=== PATIENT | male | born 2000 | race Caucasian/White ===

== ENCOUNTER 2018-04-23 13:59 | Emergency (ER) | payer SELFPAY ==
--- NOTE | 2018-04-23 14:19 | EDM.PDOC ---
ED HPI GENERAL MEDICAL PROBLEM - General Stated Complaint: EAR INFECTION Time Seen by Provider: 04/23/18 14:19 Source of Information: Reports: Patient - History of Present Illness INITIAL COMMENTS - FREE TEXT/NARRATIVE: HISTORY AND PHYSICAL: History of present illness: [Patient presents with bilateral ear pain is had right ear pain for a week left began yesterday no fever chills sweats] Review of systems: As per history of present illness and below otherwise all systems reviewed and negative. Past medical history: As per history of present illness and as reviewed below otherwise noncontributory. Surgical history: As per history of present illness and as reviewed below otherwise noncontributory. Social history: No reported history of drug or alcohol abuse. Family history: As per history of present illness and as reviewed below otherwise noncontributory. Physical exam: HEENT: Atraumatic, normocephalic, pupils reactive, negative for conjunctival pallor or scleral icterus, mucous membranes moist, throat clear, neck supple, nontender, trachea midline. Lateral otitis media noted he does have right mastoid tenderness no tenderness on the left no pain with movement of either auricle Lungs: Clear to auscultation, breath sounds equal bilaterally, chest nontender. Heart: S1S2, regular, negative for clicks, rubs, or JVD. Abdomen: Soft, nondistended, nontender. Negative for masses or hepatosplenomegaly. Negative for costovertebral tenderness. Pelvis: Stable nontender. Genitourinary: Deferred. Rectal: Deferred. Extremities: Atraumatic, negative for cords or calf pain. Neurovascular unremarkable. Neuro: Awake, alert, oriented. Cranial nerves II through XII unremarkable. Cerebellum unremarkable. Motor and sensory unremarkable throughout. Exam nonfocal. Diagnostics: [Head CT no contrast ] Therapeutics: [] Impression: [Bilateral otitis media] Definitive disposition and diagnosis as appropriate pending reevaluation and review of above. Face Pain Score (Numeric/FACES): 8 - Related Data Allergies Allergy/AdvReac Type Severity Reaction Status Date / Time No Known Allergies Allergy Verified 04/23/18 15:09 Home Meds: Home Meds . [No Known Home Meds] 04/23/18 [History] ED ROS GENERAL - Review of Systems Review Of Systems: See Below ED EXAM, GENERAL - Physical Exam Exam: See Below Course - Vital Signs Last Recorded V/S: Last Vital Signs Temp 98.4 F 04/23/18 14:18 Pulse 95 04/23/18 14:18 Resp 18 04/23/18 14:18 BP 119/64 04/23/18 14:18 Pulse Ox 98 04/23/18 14:18 - Orders/Labs/Meds Orders: Active Orders 24 hr Category Date Time Status Orbit Sella PF IAC wo Cont [CT] Stat Exams 04/23/18 14:24 Taken Departure - Departure Time of Disposition: 16:24 Disposition: Home, Self-Care 01 Condition: Good Clinical Impression: Otitis interna - Discharge Information Referrals: PCP,None [Primary Care Provider] - Additional Instructions: The following information is given to patients seen in the emergency department who are being discharged to home. This information is to outline your options for follow-up care. We provide all patients seen in our emergency department with a follow-up referral. The need for follow-up, as well as the timing and circumstances, are variable depending upon the specifics of your emergency department visit. If you don't have a primary care physician on staff, we will provide you with a referral. We always advise you to contact your personal physician following an emergency department visit to inform them of the circumstance of the visit and for follow-up with them and/or the need for any referrals to a consulting specialist. The emergency department will also refer you to a specialist when appropriate. This referral assures that you have the opportunity for follow-up care with a specialist. All of these measure are taken in an effort to provide you with optimal care, which includes your follow-up. Under all circumstances we always encourage you to contact your private physician who remains a resource for coordinating your care. When calling for follow-up care, please make the office aware that this follow-up is from your recent emergency room visit. If for any reason you are refused follow-up, please contact the [facility] emergency department at and asked to speak to the emergency department charge nurse. - My Orders Last 24 Hours: My Active Orders 04/23/18 14:24 Orbit Sella PF IAC wo Cont [CT] Stat - Assessment/Plan Last 24 Hours: My Active Orders 04/23/18 14:24 Orbit Sella PF IAC wo Cont [CT] Stat
--- NOTE | 2018-04-25 13:36 | CT ---
EXAM DATE: 04/23/18 PATIENT'S AGE: 18 Patient: LOU NUNO Facility: [place], [place] Site . Site : 2000 Study: CT Head IAC WO CONT [id number]/29/2018 3:21:00 PM Ordering Physician: Doctor Marino Final Report: INDICATION: Right ear pain TECHNIQUE: CT of the temporal bones was performed according to standard protocol without intravenous contrast. COMPARISON: None available. FINDINGS: The limited examination of the brain is normal. There is moderate pansinus mucosal thickening. Right temporal bone: There is soft tissue thickening of the right external auditory canal. There is fluid within the middle ear and mastoid. The ossicles are intact. Inner ear structures are unremarkable. IMPRESSION: Soft tissue thickening of the right external auditory canal with fluid in the right middle ear cavity and mastoid. Findings are compatible with right otitis externa and media. Please note that all CT scans at this facility use dose modulation, iterative reconstruction, and/or weight-based dosing when appropriate to reduce radiation dose to as low as reasonably achievable. Dictated by Armin Brothers MD @ Apr 24 2018 9:04AM (Electronic Signature) Report Signed by Proxy. GEMA
== END 2018-04-23 16:48 | disposition home or self-care (01) ==
LOC: MW.ED 13:59
DX: H66.93 Otitis media, unspecified, bilateral (principal); H83.03 Labyrinthitis, bilateral
CPT/HCPCS: 70480; 70480-26; 99282; 99283